=== PATIENT | male | born 1945 | race Caucasian/White ===

== ENCOUNTER 2016-11-09 11:19 | Outpatient (CLI) | payer OTHER ==
--- NOTE | 2016-11-09 20:48 | Diagnostic Imaging Report ---
[facility] [address] [facility] [address] [place], [place]. [address] ~ ~ ~ ~ Report Submission Date: Nov 09, 2016 3:54:33 PM CERTIFIED MEDICATION AIDE Patient ~ Study Name: PATIENCE RIVERA ~ Date: Nov 09, 2016 11:38:07 AM CERTIFIED MEDICATION AIDE ~ Modality Type: CR Gender: M ~ Description: ABDOMEN : 45 ~ Institution: [facility] Physician: MONTSERRAT BLACKMAN ~ ~ ~ ~ 2 views of the abdomen History:PT STATED NAUSEA, DIARRHEA X2 MONTHS. PAIN IN LOWER BACK. PAIN WORSE ON THE LEFT SIDE. (Hx) / PAIN AND PRESSURE Findings: No comparison studies Nonobstructive bowel gas pattern Stool noted in the colon. 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 Nonobstructive bowel gas pattern 2. 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
== END 2016-11-09 11:20 ==
LOC: RAD 11:19
PROVIDERS: ATTEND Nurse Practitioner Family
DX: R10.9 Unspecified abdominal pain (principal); R10.2 Pelvic and perineal pain
CPT/HCPCS: 74000

== ENCOUNTER 2016-11-14 09:33 | Outpatient (CLI) | payer OTHER ==
--- NOTE | 2016-11-14 14:07 | Diagnostic Imaging Report ---
[facility] [address] [facility].[address] [address] Report Submission Date: Nov 14, 2016 1:22:08 PM [employer] Patient Study Name: PATIENCE RIVERA Date: Nov 14, 2016 10:11:09 AM [employer] Modality Type: US Gender: M Description: US RETROPERITONEAL LIMIT : 45 Institution: [facility] Physician: MONTSERRAT BLACKMAN Renal ultrasound Clinical history: Back pain. Findings: Real time sonography of the kidneys and bladder is performed in transverse and longitudinal views. Findings: Right kidney measures 11 cm in length by 5.3 x 4.1 cm in size. Left kidney measures 11.4 cm in length by 4.4 x 5.7 cm in size. Renal cortical echogenicity is within normal limits and the cortical margins are smooth. Corticomedullary differentiation is preserved. The central renal echo complex is unremarkable. Limited images of the bladder are within normal limits. Bilateral ureteral jets are demonstrated. Impression: 1. Negative renal ultrasound. Electronically signed on Nov 14, 2016 1:22:08 PM [employer] by: Fernando AHMADI
== END 2016-11-14 09:35 ==
LOC: RAD 09:33
PROVIDERS: ATTEND Nurse Practitioner Family
DX: N23 Unspecified renal colic (principal)
CPT/HCPCS: 76775